=== PATIENT | female | born 1980 | race Caucasian/White ===

== ENCOUNTER 2017-05-02 11:15 | Observation (INO) | payer MEDICAID ==
[2017-05-02] MEDS ORDERED: PREN1TAB80 PO (11:42)
[2017-05-02 11:44] VITALS: BP 108/66
== END 2017-05-02 14:10 | disposition home or self-care (01) ==
LOC: 4S 11:15
PROVIDERS: ADMIT Obstetrics & Gynecology; ATTEND Obstetrics & Gynecology
DX: O26.893 Other specified pregnancy related conditions, third trimester (principal); R10.9 Unspecified abdominal pain; O21.0 Mild hyperemesis gravidarum; Z3A.34 34 weeks gestation of pregnancy
CPT/HCPCS: 59025; 76805; G0378

== ENCOUNTER 2017-05-05 09:30 | Observation (INO) | payer MEDICAID ==
[~2017-05-05] VITALS: Ht 154.9 cm; Wt 73.5 kg
[~2017-05-05 09:30] MED LIST: PREN1TAB80 PO
[2017-05-05 10:15] VITALS: BP 103/51
== END 2017-05-05 10:35 | disposition home or self-care (01) ==
LOC: 4S 09:30
PROVIDERS: ADMIT Obstetrics & Gynecology; ATTEND Obstetrics & Gynecology
DX: Z34.93 Encounter for supervision of normal pregnancy, unspecified, third trimester (principal); Z3A.34 34 weeks gestation of pregnancy
CPT/HCPCS: 59025; G0378

== ENCOUNTER 2017-05-09 10:10 | Observation (INO) | payer MEDICAID ==
[~2017-05-09] VITALS: Ht 154.9 cm; Wt 72.6 kg
[2017-05-09 10:35] VITALS: BP 96/62
== END 2017-05-09 10:55 | disposition home or self-care (01) ==
LOC: 4S 10:10
PROVIDERS: ADMIT Obstetrics & Gynecology; ATTEND Obstetrics & Gynecology
DX: O26.893 Other specified pregnancy related conditions, third trimester (principal); R51 Headache; Z3A.35 35 weeks gestation of pregnancy
CPT/HCPCS: 59025; G0378

== ENCOUNTER 2017-05-13 10:25 | Observation (INO) | payer MEDICAID ==
[~2017-05-13] VITALS: Ht 154.9 cm; Wt 73.5 kg
== END 2017-05-13 12:40 | disposition home or self-care (01) ==
LOC: 4S 10:25
PROVIDERS: ADMIT Obstetrics & Gynecology; ATTEND Obstetrics & Gynecology
DX: O62.9 Abnormality of forces of labor, unspecified (principal); O26.893 Other specified pregnancy related conditions, third trimester; R10.30 Lower abdominal pain, unspecified; M54.9 Dorsalgia, unspecified; O60.03 Preterm labor without delivery, third trimester; Z3A.35 35 weeks gestation of pregnancy
CPT/HCPCS: 59025; G0378

== ENCOUNTER 2017-05-14 18:09 | Observation (INO) | payer MEDICAID ==
[~2017-05-14] VITALS: Ht 154.9 cm; Wt 74.4 kg
[2017-05-14 18:23] VITALS: BP 120/74
[2017-05-14] MEDS ORDERED: BETAMETHASONE SOLUSPAN 6 MG/ML 5 ML VIAL IM ONE (19:00)
[2017-05-14] MEDS ORDERED: NIFEdipine 10 MG CAPSULE PO ONE (19:00)
[2017-05-14] MEDS ORDERED: RINGERS SOLUTION,LACTATED 1,000 ML IV ONE (19:00)
[2017-05-14] MEDS ORDERED: RINGERS SOLUTION,LACTATED 1,000 ML IV SCH (20:00)
== END 2017-05-14 23:40 | disposition home or self-care (01) ==
LOC: 4S 18:09
PROVIDERS: ADMIT Obstetrics & Gynecology; ATTEND Obstetrics & Gynecology
DX: O46.93 Antepartum hemorrhage, unspecified, third trimester (principal); Z3A.35 35 weeks gestation of pregnancy
CPT/HCPCS: 59025; 96360; 96361; 96372; G0378; J0702; J7120

== ENCOUNTER 2017-05-15 19:08 | Observation (INO) | payer MEDICAID ==
[2017-05-15] MEDS ORDERED: BETAMETHASONE SOLUSPAN 6 MG/ML 5 ML VIAL IM ONE (19:15)
== END 2017-05-15 20:00 | disposition home or self-care (01) ==
LOC: 4S 19:08
PROVIDERS: ADMIT Obstetrics & Gynecology; ATTEND Obstetrics & Gynecology
DX: O62.9 Abnormality of forces of labor, unspecified (principal); Z3A.35 35 weeks gestation of pregnancy
CPT/HCPCS: 59025; 96372; G0378; J0702

== ENCOUNTER 2017-05-20 15:19 | Observation (INO) | payer MEDICAID ==
[~2017-05-20] VITALS: Ht 154.9 cm; Wt 74.4 kg
[2017-05-20 16:28] VITALS: BP 107/56
== END 2017-05-20 16:15 | disposition home or self-care (01) ==
LOC: 4S 15:19
PROVIDERS: ADMIT Obstetrics & Gynecology; ATTEND Obstetrics & Gynecology
DX: O26.893 Other specified pregnancy related conditions, third trimester (principal); R10.30 Lower abdominal pain, unspecified; R10.2 Pelvic and perineal pain; Z3A.36 36 weeks gestation of pregnancy
CPT/HCPCS: 59025; G0378

== ENCOUNTER 2017-05-23 15:22 | Observation (INO) | payer MEDICAID ==
[~2017-05-23] VITALS: Ht 154.9 cm; Wt 74.4 kg
== END 2017-05-23 16:30 | disposition home or self-care (01) ==
LOC: 4S 15:22
PROVIDERS: ADMIT Obstetrics & Gynecology; ATTEND Obstetrics & Gynecology
DX: O09.523 Supervision of elderly multigravida, third trimester (principal); Z3A.37 37 weeks gestation of pregnancy
CPT/HCPCS: 59025; 76805; G0378

== ENCOUNTER 2017-05-26 16:39 | Observation (INO) | payer MEDICAID | END 2017-05-26 17:35 | disposition home or self-care (01) | LOC: 4S 16:39 | PROVIDERS: ADMIT Obstetrics & Gynecology; ATTEND Obstetrics & Gynecology | DX: Z34.93 Encounter for supervision of normal pregnancy, unspecified, third trimester (principal); Z3A.37 37 weeks gestation of pregnancy | CPT/HCPCS: 59025; G0378 ==

== ENCOUNTER 2017-05-27 10:45 | Observation (INO) | payer MEDICAID ==
[~2017-05-27] VITALS: Ht 154.9 cm; Wt 73.9 kg
[2017-05-27 11:05] VITALS: BP 103/66
== END 2017-05-27 12:45 | disposition home or self-care (01) ==
LOC: 4S 10:45
PROVIDERS: ADMIT Obstetrics & Gynecology; ATTEND Obstetrics & Gynecology
DX: O62.9 Abnormality of forces of labor, unspecified (principal); O09.523 Supervision of elderly multigravida, third trimester; Z3A.37 37 weeks gestation of pregnancy
CPT/HCPCS: 59025; 76811; G0378

== ENCOUNTER 2017-05-27 14:44 | Observation (INO) | payer MEDICAID ==
[~2017-05-27] VITALS: Ht 154.9 cm; Wt 74.4 kg
[2017-06-01 08:57] VITALS: BP 110/58
== END 2017-06-01 09:50 | disposition home or self-care (01) ==
LOC: 4S 06-01 08:40
PROVIDERS: ADMIT Obstetrics & Gynecology; ATTEND Obstetrics & Gynecology
DX: Z34.93 Encounter for supervision of normal pregnancy, unspecified, third trimester (principal); Z3A.38 38 weeks gestation of pregnancy
CPT/HCPCS: 59025; G0378

== ENCOUNTER 2017-06-01 10:41 | Observation (INO) | payer MEDICAID | END 2017-06-03 21:35 | disposition home or self-care (01) | LOC: 4S 06-03 19:42 | PROVIDERS: ADMIT Obstetrics & Gynecology; ATTEND Obstetrics & Gynecology | DX: O26.893 Other specified pregnancy related conditions, third trimester (principal); M54.9 Dorsalgia, unspecified; R10.9 Unspecified abdominal pain; Z3A.38 38 weeks gestation of pregnancy | CPT/HCPCS: 59025; G0378 ==

== ENCOUNTER 2017-06-07 20:31 | Inpatient (IN) | payer MEDICAID ==
[~2017-06-07] VITALS: Ht 135.2 cm; Wt 75.7 kg
[2017-06-07] MEDS ORDERED: OXYTOCIN 30 UNITS/LACT RINGERS 500 ML IV PRN (20:36)
[2017-06-07] MEDS ORDERED: RINGERS SOLUTION,LACTATED 1,000 ML IV PRN (20:36)
[2017-06-07] MEDS ORDERED: RINGERS SOLUTION,LACTATED 1,000 ML IV SCH (20:36)
[2017-06-07] MEDS ORDERED: LIDOCAINE HCL/PF 1% 30 ML VIAL INJ PRN (20:45)
[2017-06-07] MEDS ORDERED: CITRIC ACID/SODIUM CITRATE 30 ML SOLUTION UDCUP PO PRN (20:45)
[2017-06-07] MEDS ORDERED: METHYLERGONOVINE MALEATE 0.2 MG/ML VIAL IM PRN (20:45)
[2017-06-07] MEDS ORDERED: METOCLOPRAMIDE HCL 5 MG/ML 2 ML VIAL IVP PRN (20:45)
[2017-06-07] MEDS ORDERED: OXYGEN THERAPY IH SCH (20:45)
[2017-06-07] MEDS ORDERED: FentaNYL CITRATE-PF 100 MCG/2 ML VIAL IVP PRN (20:45)
[2017-06-07 21:27] VITALS: BP 125/82
[2017-06-07 21:47] LABS: EOSINOPHILS % (AUTO) 1.5 % (1.0-6.0); HEMATOCRIT 35.7 % (36-46); HEMOGLOBIN 11.8 g/dL (12.0-16.0); LYMPHOCYTES # (AUTO) 2.5 K/uL (1.0-4.8); LYMPHOCYTES % (AUTO) 21.1 % (22.0-44.0); MEAN CORPUSCULAR HEMOGLOBIN 29.3 pg (26.0-34.0); MEAN CORPUSCULAR HGB CONC 33.2 G/dL (31.0-37.0); MEAN CORPUSCULAR VOLUME 88 fL (80-100); MONOCYTES % (AUTO) 8.2 % (2.0-9.0); NEUTROPHILS # (AUTO) 8.2 K/uL (1.8-7.7); NEUTROPHILS % (AUTO) 69.2 % (40.0-70.0); PLATELET COUNT (AUTO) 321 K/uL (150-450); RED BLOOD CELL COUNT(AUTO) 4.05 MIL/uL (4.00-5.20); RED CELL DISTRIBUTION WIDTH 13.9 % (11.5-14.5); WHITE BLOOD COUNT (AUTO) 11.9 K/uL (4.5-11.0)
[2017-06-08] MEDS ORDERED: BUPIVACAINE HCL/PF 0.5% 10 ML VIAL ONE (05:14)
[2017-06-08] MEDS ORDERED: OXYTOCIN 30 UNITS/LACT RINGERS 500 ML IV ONE (06:08)
[2017-06-08] MEDS ORDERED: BENZOCAINE 20%/MENTHOL 56 GM SPRAY CANISTER TP PRN (06:15)
[2017-06-08] MEDS ORDERED: OxyCODONE HCL/ACETAMINOPHEN 5-325 MG TABLET PO PRN (06:15)
[2017-06-08] MEDS ORDERED: LIDOCAINE HCL/PF 1% 30 ML VIAL INJ PRN (06:15)
[2017-06-08] MEDS ORDERED: LANOLIN 7 GM OINTMENT TP PRN (06:15)
[2017-06-08] MEDS ORDERED: GLYCERIN/WITCH HAZEL LEAF 40 PADS JAR TP PRN (06:15)
[2017-06-08] MEDS: IBUPROFEN 800 MG TABLET PO PRN ×3 (06:38→20:36)
[2017-06-08] MEDS: OxyCODONE HCL/ACETAMINOPHEN 5-325 MG TABLET PO PRN (06:39)
[2017-06-08] MEDS ORDERED: FentaNYL CITRATE-PF 100 MCG/2 ML VIAL ONE (06:49)
[2017-06-08] MEDS ORDERED: MORPHINE SULFATE/PF 1 MG/ML 10 ML AMP ONE (06:50)
[2017-06-08] MEDS ORDERED: MORPHINE SULFATE/PF 0.5 MG/ML 10 ML AMP ONE (06:50)
[2017-06-08] MEDS: MAGNESIUM HYDROXIDE SUSPENSION 30 ML UDCUP PO PRN (13:26)
[2017-06-09] MEDS: IBUPROFEN 800 MG TABLET PO PRN ×2 (02:38→09:30)
[2017-06-09] MEDS: OxyCODONE HCL/ACETAMINOPHEN 5-325 MG TABLET PO PRN ×2 (02:38→09:30)
[2017-06-09 06:16] LABS: BASOPHILS % (AUTO) 0.4 % (0.0-2.0); HEMATOCRIT 32.6 % (36-46); LYMPHOCYTES # (AUTO) 3.4 K/uL (1.0-4.8); LYMPHOCYTES % (AUTO) 27.3 % (22.0-44.0); MEAN CORPUSCULAR HEMOGLOBIN 30.1 pg (26.0-34.0); MEAN CORPUSCULAR HGB CONC 33.7 G/dL (31.0-37.0); MEAN CORPUSCULAR VOLUME 89 fL (80-100); MONOCYTES # (AUTO) 1.1 K/uL (0.1-1.0); MONOCYTES % (AUTO) 8.7 % (2.0-9.0); NEUTROPHILS # (AUTO) 7.6 K/uL (1.8-7.7); NEUTROPHILS % (AUTO) 61.6 % (40.0-70.0); RED BLOOD CELL COUNT(AUTO) 3.66 MIL/uL (4.00-5.20); RED CELL DISTRIBUTION WIDTH 13.9 % (11.5-14.5); WHITE BLOOD COUNT (AUTO) 12.3 K/uL (4.5-11.0)
[2017-06-09] MEDS: MAGNESIUM HYDROXIDE SUSPENSION 30 ML UDCUP PO PRN (09:31)
[2017-06-09] MEDS ORDERED: DSS100 PO (09:46)
[2017-06-09] MEDS ORDERED: IBUP-2070 PO (09:46)
[2017-06-09] MEDS ORDERED: FERR-89 PO (09:47)
== END 2017-06-09 12:00 | disposition home or self-care (01) | DRG 560 ==
LOC: 4S 20:31 → OBSVTOIN 20:31
PROVIDERS: ADMIT Obstetrics & Gynecology; ATTEND Obstetrics & Gynecology
PROC: 10E0XZZ Delivery of Products of Conception, External Approach (ICD-10-PCS; principal; 2017-06-08)
PROC: 0HQ9XZZ Repair Perineum Skin, External Approach (ICD-10-PCS; 2017-06-08)
PROC: 3E033VJ Introduction of Other Hormone into Peripheral Vein, Percutaneous Approach (ICD-10-PCS; 2017-06-08)
DX: O70.0 First degree perineal laceration during delivery (principal); O09.523 Supervision of elderly multigravida, third trimester; Z37.0 Single live birth; Z3A.39 39 weeks gestation of pregnancy
CPT/HCPCS: 86850; 86900; 86901; J2274; J2590; J3010; J3490; J7120